=== PATIENT | female | born 1985 | race Caucasian/White ===

== ENCOUNTER 2021-07-31 09:47 | Emergency (ER) | payer MEDICAID, SELFPAY ==
[~2021-07-31] VITALS: Ht 170.2 cm; Wt 81.6 kg
[2021-07-31 10:10] VITALS: BP_SYST 101
--- NOTE | 2021-07-31 10:14 | NUR ---
triaged in tent
--- NOTE | 2021-07-31 10:30 | NUR ---
ER Dr. Herrera at bedside examining patient.
--- NOTE | 2021-07-31 10:36 | NUR ---
COVID SWAB DONE AND SENT TO LAB
--- NOTE | 2021-07-31 10:39 | NUR ---
PORTABLE X-RAY WITH PT
--- NOTE | 2021-07-31 10:40 | NUR ---
Pt came in c/o NICHOLSON x 3 day, cough and diarrhea x 1 day. rates NICHOLSON 5/10 on pain scale, Pt afebrile 98.5
[2021-07-31 11:49] VITALS: BP_SYST 101
--- NOTE | 2021-07-31 11:49 | NUR ---
Patient given written and verbal discharge instructions and verbalizes understanding. ER MD discussed with patient the results and treatment provided. Patient in stable condition. ID arm band removed. NO Rx given. Patient educated on pain management and to follow up with PMD. Pain Scale 0/10. Opportunity for questions provided and answered. Medication side effect fact sheet provided.
[2021-07-31] MEDS ORDERED: LORazepam 2 MG/ML VIAL ONE (23:01)
[2021-07-31] MEDS ORDERED: SILVER NITRATE APPLICATOR 1 STICK STICK..EA. TP ONE (23:05)
== END 2021-07-31 11:49 | disposition home or self-care (01) ==
LOC: SED 09:47
DX: J40 Bronchitis, not specified as acute or chronic (principal); Z20.822 Contact with and (suspected) exposure to COVID-19
CPT/HCPCS: 36415; 71045; 87426; 99284; J2060